=== PATIENT | female | born 1965 | race Caucasian/White ===

== ENCOUNTER 2017-05-02 15:05 | Emergency (ER) | payer MEDICAID ==
[~2017-05-02] VITALS: Ht 160 cm; Wt 54.4 kg
[~2017-05-02 15:05] MED LIST: CARV12.544 PO; ENAL5TAB92 PO; FURO40TA4 PO; LORA-622 PO; POT20T PO
[2017-05-02] MEDS ORDERED: amLODIPine BESYLATE 5 MG TAB PO ONE (15:45)
[2017-05-02] MEDS ORDERED: LORazepam 0.5 MG TAB PO ONE (16:00)
[2017-05-02 16:16] LABS: Basophils # (auto) 0 uL; Basophils % (auto) 0.5 % (0.0-2.0); Eosinophils # (auto) 0.3 uL; Eosinophils % (auto) 2.8 % (0.0-7.0); Hematocrit 45.5 % (36.0-46.0); Hemoglobin 15.1 g/dL (12.2-16.2); Lymphocytes # (auto) 1.4 uL; Lymphocytes % (auto) 15.2 % (10.0-50.0); Mean Corpuscular Hemoglobin 28.4 pg (28.0-32.0); Mean Corpuscular Hgb Conc. 33.2 g/dL (32.0-36.0); Mean Corpuscular Volume 85.5 fL (80.0-100.0); Mean Platelet Volume 7.3 fL (6.9-10.8); Monocytes # (auto) 0.6 uL; Monocytes % (auto) 6.6 % (0.0-12.0); Neutrophils % (auto) 74.9 % (37.0-80.0); Platelet Count (auto) 234 10^3/uL (140-450); Red Cell Distribution Width 13.9 % (11.8-14.3); White Blood Cell 9.3 10^3/uL (4.4-10.8)
[2017-05-02 16:30] LABS: Albumin 3.6 g/dL (3.4-5.0); Alkaline Phosphatase 95 U/L (45-117); Anion Gap 7 (5-15); Aspartate Aminotransferase 16 U/L (15-37); BUN/Creatinine Ratio 17.4; Bilirubin, Total 0.6 mg/dL (0.2-1.0); Blood Urea Nitrogen 15 mg/dL (7-18); Calcium 8.8 mg/dL (8.5-10.1); Carbon Dioxide 26 mmol/L (21-32); Chloride 106 mmol/L (98-107); GFR African American 89 mL/min; GFR Non-African American 74 mL/min; Glucose 95 mg/dL (74-106); Potassium 3.8 mmol/L (3.5-5.1); Sodium 139 mmol/L (136-145); Total Protein 7.4 g/dL (6.4-8.2)
[2017-05-02] MEDS ORDERED: cloNIDine HCL 0.1 MG TAB PO ONE (17:15)
[2017-05-02 18:37] VITALS: BP 153/98
== END 2017-05-02 17:02 | disposition home or self-care (01) ==
LOC: EDBD 15:05 → ER 15:15
DX: I11.0 Hypertensive heart disease with heart failure (principal); I50.9 Heart failure, unspecified; F41.9 Anxiety disorder, unspecified; Z88.0 Allergy status to penicillin; Z88.6 Allergy status to analgesic agent; E78.5 Hyperlipidemia, unspecified; I25.2 Old myocardial infarction
CPT/HCPCS: 36415; 70450; 80053; 84484; 85025

== ENCOUNTER 2017-07-09 18:35 | Emergency (ER) | payer MEDICAID ==
[~2017-07-09] VITALS: Ht 160 cm; Wt 65.8 kg
[2017-07-09 18:44] VITALS: BP 183/100
== END 2017-07-09 20:08 | disposition left against medical advice (07) ==
LOC: ER 18:35 → EDUNIT# 18:35 → EDBD 18:35 → ER 20:08
DX: M54.9 Dorsalgia, unspecified (principal); Z53.21 Procedure and treatment not carried out due to patient leaving prior to being seen by health care provider

== ENCOUNTER 2019-08-02 21:49 | Inpatient (IN) | payer SELFPAY ==
[~2019-08-02] VITALS: Ht 160 cm; Wt 63.4 kg
[~2019-08-02 21:49] MED LIST changes: +ENAL5TAB PO; -ENAL5TAB92 PO
[2019-08-02] MEDS ORDERED: cloNIDine HCL 0.1 MG TAB PO ONE (22:15)
[2019-08-02 22:28] LABS: Basophils # (auto) 0.1 uL; Basophils % (auto) 0.9 % (0.0-2.0); Eosinophils # (auto) 0.1 uL; Hematocrit 38.9 % (36.0-46.0); Hemoglobin 13.1 g/dL (12.2-16.2); Lymphocytes # (auto) 2.3 uL; Lymphocytes % (auto) 30.3 % (10.0-50.0); Mean Corpuscular Hemoglobin 28.3 pg (28.0-32.0); Mean Corpuscular Hgb Conc. 33.7 g/dL (32.0-36.0); Mean Corpuscular Volume 83.8 fL (80.0-100.0); Monocytes # (auto) 0.6 uL; Monocytes % (auto) 7.7 % (0.0-12.0); Neutrophils # (auto) 4.5 uL; Neutrophils % (auto) 59.1 % (37.0-80.0); Platelet Count (auto) 246 10^3/uL (140-450); Red Blood Cells 4.64 10^6/uL (4.0-5.20); Red Cell Distribution Width 14.4 % (11.8-14.3); White Blood Cell 7.6 10^3/uL (4.4-10.8)
[2019-08-02 22:45] LABS: Albumin 3.6 g/dL (3.4-5.0); Calcium 9.2 mg/dL (8.5-10.1)
[2019-08-02 22:51] LABS: BUN/Creatinine Ratio 20.5; Bilirubin, Total 0.5 mg/dL (0.2-1.0); Total Protein 7.3 g/dL (6.4-8.2)
[2019-08-02 22:55] LABS: INR 1.08 (0.9-1.15); Partial Thromboplastin Time 25.9 sec (23.64-32.05)
[2019-08-02] MEDS ORDERED: ASPirin 81 mg TAB PO ONE (23:30)
[2019-08-02] MEDS ORDERED: ONDANSETRON HCL 4 MG/2 ML VIAL IV ONE (23:30)
[2019-08-02] MEDS ORDERED: ATORVASTATIN 20 MG TAB PO ONE (23:30)
[2019-08-02] MEDS ORDERED: NITROGLYCERIN 2% OINT 1GM PKG TD ONE (23:30)
[2019-08-02] MEDS ORDERED: MORPHINE SULFATE 4 MG/ML SYR/VIAL IV ONE (23:30)
[2019-08-02] MEDS ORDERED: HEPARIN DRIP/D5W 100UNITS/ML 250 ML IV SCH (23:31)
[2019-08-02 23:52] LABS: Basophils # (auto) 0.2 uL; Basophils % (auto) 2.2 % (0.0-2.0); Eosinophils # (auto) 0.2 uL; Eosinophils % (auto) 2.1 % (0.0-7.0); Hematocrit 38.3 % (36.0-46.0); Hemoglobin 12.8 g/dL (12.2-16.2); Lymphocytes # (auto) 2.4 uL; Lymphocytes % (auto) 31.1 % (10.0-50.0); Mean Corpuscular Hemoglobin 27.8 pg (28.0-32.0); Mean Corpuscular Hgb Conc. 33.4 g/dL (32.0-36.0); Mean Corpuscular Volume 83.2 fL (80.0-100.0); Monocytes # (auto) 0.6 uL; Neutrophils # (auto) 4.4 uL; Neutrophils % (auto) 56.6 % (37.0-80.0); Platelet Count (auto) 239 10^3/uL (140-450); Red Cell Distribution Width 14.4 % (11.8-14.3); White Blood Cell 7.8 10^3/uL (4.4-10.8)
[2019-08-03] MEDS ORDERED: ACETAMINOPHEN 325 MG TAB PO ONE
[2019-08-03 00:14] LABS: Albumin 3.7 g/dL (3.4-5.0); BUN/Creatinine Ratio 22.7; Calcium 9.2 mg/dL (8.5-10.1); Potassium 4.5 mmol/L (3.5-5.1)
[2019-08-03 00:20] LABS: Bilirubin, Total 0.4 mg/dL (0.2-1.0)
[2019-08-03] MEDS ORDERED: FUROSEMIDE 20 MG/2 ML VIAL IV ONE ×2 (00:30)
[2019-08-03] MEDS ORDERED: HEPARIN SODIUM (PORCINE) 5000 UNITS/ML 1ML VIAL ONE (00:41)
[2019-08-03] MEDS ORDERED: ONDANSETRON HCL 4 MG/2 ML VIAL IV PRN (00:45)
[2019-08-03] MEDS ORDERED: TEMAZEPAM 15 MG CAP PO PRN (00:45)
[2019-08-03] MEDS ORDERED: METOPROLOL TARTRATE 25 MG TAB PO ONE (00:45)
[2019-08-03] MEDS ORDERED: MORPHINE SULF INJ 2 MG/ML SYRINGE 1ML IV PRN (01:00)
[2019-08-03] MEDS ORDERED: HEPARIN SODIUM (PORCINE) 5000 UNITS/ML 1ML VIAL IV ONE ×2 (01:00→20:50)
[2019-08-03] MEDS ORDERED: NITROGLYCERIN 0.4 MG SL TAB SL PRN (01:00)
[2019-08-03] MEDS: HEPARIN DRIP/D5W 100UNITS/ML 250 ML IV SCH (01:06)
[2019-08-03] MEDS ORDERED: IOHEXOL 350 MG/ML 100ML IJ ONE (01:15)
[2019-08-03 02:15] LABS: Basophils # (auto) 0.1 uL; Basophils % (auto) 1.4 % (0.0-2.0); Eosinophils # (auto) 0.2 uL; Eosinophils % (auto) 2.6 % (0.0-7.0); Hematocrit 36.7 % (36.0-46.0); Lymphocytes # (auto) 2.6 uL; Lymphocytes % (auto) 37.4 % (10.0-50.0); Mean Corpuscular Hemoglobin 27.3 pg (28.0-32.0); Mean Corpuscular Hgb Conc. 32.8 g/dL (32.0-36.0); Mean Corpuscular Volume 83.2 fL (80.0-100.0); Monocytes # (auto) 0.5 uL; Monocytes % (auto) 6.8 % (0.0-12.0); Neutrophils # (auto) 3.6 uL; Neutrophils % (auto) 51.8 % (37.0-80.0); Nucleated Red Blood Cells % 0.1 %; Platelet Count (auto) 223 10^3/uL (140-450); Red Blood Cells 4.41 10^6/uL (4.0-5.20); Red Cell Distribution Width 14.3 % (11.8-14.3); White Blood Cell 6.9 10^3/uL (4.4-10.8)
[2019-08-03 02:47] LABS: INR 1.18 (0.9-1.15)
[2019-08-03 02:50] LABS: Partial Thromboplastin Time 107.8 sec (23.64-32.05)
[2019-08-03 05:17] LABS: Urine Bacteria FEW /hpf (None Seen); Urine Blood 1+ /uL (Negative); Urine Hyaline Cast FEW /lpf (0 - 2); Urine Mucus FEW (None Seen); Urine Specific Gravity 1.029 (1.001-1.035); Urine WBC 2 /hpf (0 - 5)
[2019-08-03] MEDS: FUROSEMIDE 20 MG/2 ML VIAL IV SCH ×2 (06:00→18:00)
[2019-08-03 08:11] LABS: INR 1.09 (0.9-1.15); Partial Thromboplastin Time 28.5 sec (23.64-32.05)
[2019-08-03] MEDS: ACETAMINOPHEN 325 MG TAB PO PRN ×2 (08:37→18:30)
[2019-08-03] MEDS: PANTOPRAZOLE 40 MG TAB PO SCH (09:57)
[2019-08-03] MEDS: ENALAPRIL MALEATE 2.5 MG TAB PO SCH (09:57)
[2019-08-03] MEDS ORDERED: ASPirin 81 mg TAB PO SCH (10:00)
[2019-08-03] MEDS: CARVEDILOL 12.5 MG TAB PO SCH ×2 (10:00→22:00)
[2019-08-03] MEDS ORDERED: CLOPIDOGREL 300 MG TAB PO ONE (12:00)
[2019-08-03] MEDS ORDERED: CLOPIDOGREL BISULFATE 75 MG TAB PO ONE (12:00)
[2019-08-03 14:27] LABS: INR 1.13 (0.9-1.15); Partial Thromboplastin Time 57.4 sec (23.64-32.05)
--- NOTE | 2019-08-03 17:15 | NUR ---
Telemetry admit from ER VIN HILLMAN admitted to Telemetry unit after SBAR received. Patient oriented to SHAI WORRELL,RN primary RN, unit, room, bed, and unit policies regarding patient care and visiting hours. Patient now on continuous telemetry monitoring, tele box # 30 and telemetry reading on arrival to unit is NSR @60bpm. Patient placed on bedside oxygen @ 2l n/c. weighed by bedscale and encouraged to call if they need something. Bed in lowest/locked position, bed rails up x2, call light within reach. All questions and concerns addressed, patient verbalized understanding.
[2019-08-03 17:53] VITALS: BP 99/62
[2019-08-03 17:56] VITALS: BP 99/62
--- NOTE | 2019-08-03 19:30 | NUR ---
Opening Shift Note Assumed care of patient, awake and alert x4. No S/S of distress/SOB or pain. Heparin drip is infusing at 6.8 mls/hr to the RAC. Call light is within reach, side rails up x2, bed is in lowest position. Instructed on POC and to call for assist PRN, will continue to monitor for changes Q1hr and PRN.
[2019-08-03 20:22] LABS: INR 1.11 (0.9-1.15); Partial Thromboplastin Time 33.6 sec (23.64-32.05)
--- NOTE | 2019-08-03 20:44 | NUR ---
Pharmacy called. New aPTT lab draw was 33.6, protocol to give 5000 unit bolus of heparin and increase drip rate by 3ml/hr. New drip rate is to be 9.8 ml/hr
--- NOTE | 2019-08-03 20:55 | NUR ---
5,000 unit Heparin bolus given. Heparin drip rate changed from 6.8cc/hr to 9.8cc/hr. Next aPTT lab draw is at 0300. Will continue to monitor.
[2019-08-03] MEDS: ATORVASTATIN 20 MG TAB PO SCH (22:02)
[2019-08-03 22:05] VITALS: BP 91/56
--- NOTE | 2019-08-03 23:20 | NUR ---
Dr. Lazar rounding on patient. New orders received and verified for aspirin 81 mg daily, furosemide 40 mg IVP BID, furosemide 40 mg IVP one time now, cardiac/ 2gm Na diet, left heart cath with Dr. Krause on 08/06, strict intake and output, and daily weights. Will carry out and continue to monitor.
[2019-08-04] MEDS: FUROSEMIDE 20 MG/2 ML VIAL IV SCH ×3 (00:07→18:20)
[2019-08-04 02:54] LABS: Basophils # (auto) 0 uL; Basophils % (auto) 0.3 % (0.0-2.0); Eosinophils # (auto) 0.3 uL; Eosinophils % (auto) 3.6 % (0.0-7.0); Hematocrit 40.6 % (36.0-46.0); Hemoglobin 13.5 g/dL (12.2-16.2); Lymphocytes % (auto) 23.7 % (10.0-50.0); Mean Corpuscular Hemoglobin 27.3 pg (28.0-32.0); Mean Corpuscular Hgb Conc. 33.2 g/dL (32.0-36.0); Mean Corpuscular Volume 82.2 fL (80.0-100.0); Monocytes # (auto) 0.7 uL; Monocytes % (auto) 8.6 % (0.0-12.0); Neutrophils # (auto) 5.5 uL; Neutrophils % (auto) 63.8 % (37.0-80.0); Nucleated Red Blood Cells % 0.1 %; Platelet Count (auto) 236 10^3/uL (140-450); Red Blood Cells 4.94 10^6/uL (4.0-5.20); Red Cell Distribution Width 14.1 % (11.8-14.3); White Blood Cell 8.6 10^3/uL (4.4-10.8)
[2019-08-04 03:18] LABS: Albumin 3.5 g/dL (3.4-5.0); Calcium 9.2 mg/dL (8.5-10.1); Potassium 3.7 mmol/L (3.5-5.1)
[2019-08-04 03:21] LABS: INR 1.09 (0.9-1.15)
[2019-08-04 03:22] LABS: BUN/Creatinine Ratio 24.8; Bilirubin, Total 0.8 mg/dL (0.2-1.0); Total Protein 7.1 g/dL (6.4-8.2)
[2019-08-04 03:24] LABS: Partial Thromboplastin Time 79.4 sec (23.64-32.05)
--- NOTE | 2019-08-04 03:29 | NUR ---
Critical lab value received aPTT aPTT level is now 79.4. Protocol to adjust heparin drip is no bolus and to decrease by 2ml/hr. Heparin drip is now set at 7.8ml/hr. Next lab draw is for 0900. Will continue to monitor.
[2019-08-04 05:14] VITALS: BP 110/55
[2019-08-04] MEDS: ACETAMINOPHEN 325 MG TAB PO PRN (05:23)
[2019-08-04 08:26] VITALS: BP 101/63
[2019-08-04] MEDS: ASPirin 81 mg TAB PO SCH (09:27)
[2019-08-04] MEDS: CLOPIDOGREL BISULFATE 75 MG TAB PO SCH (09:27)
[2019-08-04] MEDS: PANTOPRAZOLE 40 MG TAB PO SCH (09:27)
[2019-08-04] MEDS: CARVEDILOL 12.5 MG TAB PO SCH ×2 (09:28→22:25)
[2019-08-04] MEDS: ENALAPRIL MALEATE 2.5 MG TAB PO SCH (09:28)
[2019-08-04 09:41] LABS: INR 1.13 (0.9-1.15)
[2019-08-04] MEDS: HEPARIN DRIP/D5W 100UNITS/ML 250 ML IV SCH (09:55)
--- NOTE | 2019-08-04 09:58 | NUR ---
PTT 49.0 HEPARIN ADJUSTED PER PROTOCOL Addendum: 08/04/19 at 1045 by RUBIN HERNANDEZ RN RN PTT 46.0
[2019-08-04] MEDS ORDERED: ASPirin 81 mg TAB PO SCH (10:00)
[2019-08-04] MEDS ORDERED: POTASSIUM CHL 20 Meq TABLET PO ONE (10:15)
--- NOTE | 2019-08-04 10:37 | NUR ---
DRUG SCREEN URINE SAMPLE OBTAINED AND SENT TO LAB
[2019-08-04 11:00] LABS: Alcohol, Urine < 3.0 mg/dL (0-5); Amphetamine Screen, Urine POSITIVE (NEGATIVE); Barbiturate Scree,Urine NEGATIVE (NEGATIVE); Benzodiazephine Screen, Urine NEGATIVE (NEGATIVE); Cannabinoid Screen, Urine NEGATIVE (NEGATIVE); Cocaine Screen, Urine NEGATIVE (NEGATIVE); Opiate Scree,Urine NEGATIVE (NEGATIVE); Phencyclidine Screen, Urine NEGATIVE (NEGATIVE)
[2019-08-04 13:00] VITALS: BP 95/63
[2019-08-04 15:06] LABS: INR 1.11 (0.9-1.15)
--- NOTE | 2019-08-04 15:28 | NUR ---
PTT CAME BACK 49.0 ADJUSTED HEPARIN PER PROTOCOL
--- NOTE | 2019-08-04 16:09 | NUR ---
SPOKE TO PHARMACY PER PHARMACY TO MAINTAIN RATE 9.8ML/HR
[2019-08-04 16:28] VITALS: BP 102/64
--- NOTE | 2019-08-04 19:20 | NUR ---
Opening Shift Note Assumed care of patient, awake and alert x4. No S/S of distress/SOB or pain. Heparin drip is infusing at 9.8 mls/hr to the RAC. Call light is within reach, side rails up x2, bed is in lowest position. Instructed on POC and to call for assist PRN, will continue to monitor for changes Q1hr and PRN.
--- NOTE | 2019-08-04 21:30 | NUR ---
aPTT lab value is 37.2, adjusted heparin drip per protocol, new drip rate is 11.8 ml/s hr.
[2019-08-04 21:54] LABS: INR 1.11 (0.9-1.15); Partial Thromboplastin Time 37.2 sec (23.64-32.05)
[2019-08-04 22:00] VITALS: BP_SYST 109; BP_SYST 116; BP_DIAS 57; BP_DIAS 63
[2019-08-04] MEDS: ATORVASTATIN 20 MG TAB PO SCH (22:25)
[2019-08-05 03:30] LABS: BUN/Creatinine Ratio 29.2; Calcium 9.3 mg/dL (8.5-10.1)
[2019-08-05 04:31] LABS: INR 1.11 (0.9-1.15); Partial Thromboplastin Time 55.9 sec (23.64-32.05)
--- NOTE | 2019-08-05 04:35 | NUR ---
aPTT level is 55.9, heparin protocol is no change. Current drip rate is maintained at 11.8 ml/hr.
[2019-08-05 05:44] VITALS: BP 110/73
[2019-08-05] MEDS: FUROSEMIDE 20 MG/2 ML VIAL IV SCH ×2 (06:20→18:00)
[2019-08-05 08:00] VITALS: BP 110/73
[2019-08-05 09:06] VITALS: BP 116/69
--- NOTE | 2019-08-05 09:45 | NUR ---
Received report, assumed care of patient. Patient is alert and oriented. IV right AC, Heparin infusing. Patient has no complaints at this time. Call light in reach. Will continue to monitor.
[2019-08-05] MEDS: CLOPIDOGREL BISULFATE 75 MG TAB PO SCH (09:52)
[2019-08-05] MEDS: ASPirin 81 mg TAB PO SCH (09:53)
[2019-08-05] MEDS: ENALAPRIL MALEATE 2.5 MG TAB PO SCH (09:53)
[2019-08-05] MEDS: PANTOPRAZOLE 40 MG TAB PO SCH (09:53)
[2019-08-05] MEDS: CARVEDILOL 12.5 MG TAB PO SCH ×2 (09:53→22:00)
[2019-08-05 10:16] LABS: INR 1.09 (0.9-1.15); Partial Thromboplastin Time 65.3 sec (23.64-32.05)
[2019-08-05] MEDS: HEPARIN DRIP/D5W 100UNITS/ML 250 ML IV SCH (10:37)
[2019-08-05 12:21] VITALS: BP 99/59
--- NOTE | 2019-08-05 13:50 | NUR ---
IV right AC out. Pressure dressing to site. Will continue to monitor.
--- NOTE | 2019-08-05 14:19 | NUR ---
IV insertion IV access obtained, via clean sterile technique by inserting 22 gauge catheter at right forearm after 2 attempts. IV secured properly. No trauma to site. Patient tolerated procedure well. IV started by KAYA Min.
--- NOTE | 2019-08-05 15:30 | NUR ---
PTT 51.6. No change in rate of Heparin.
[2019-08-05 15:42] LABS: INR 1.05 (0.9-1.15); Partial Thromboplastin Time 51.6 sec (23.64-32.05)
[2019-08-05 16:50] VITALS: BP 93/41
--- NOTE | 2019-08-05 19:40 | NUR ---
Opening Shift Note Assumed care of patient, awake and alert x4. No S/S of distress/SOB or pain. Call light is within reach, side rails up x2, bed is in lowest position. Oxygen is at 2L/min vi nasal cannula. Heparin drip is at 12mls/hr. IV is patent. Tracey is in place and hung below bladder. Instructed on POC and to call for assist PRN, will continue to monitor for changes Q1hr and PRN.
[2019-08-05] MEDS: ATORVASTATIN 20 MG TAB PO SCH (22:07)
[2019-08-05 22:39] VITALS: BP 98/59
--- NOTE | 2019-08-06 00:01 | NUR ---
Paged hospitalist Patient is complaining of itching everywhere.
--- NOTE | 2019-08-06 00:06 | NUR ---
Hospitalist called back, new order received for Benadryl 50 mg PO one time. Will carry out.
[2019-08-06] MEDS ORDERED: diphenhdrAMINE HCL 25 MG CAP PO ONE ×2 (00:15→23:00)
--- NOTE | 2019-08-06 00:26 | NUR ---
Refusing environmental monitoring specialist technical publications manager called, patient is off tele. This RN went to put her back on and the patient stated, "No you are not touching me. I am not putting those stickers back on. They make me itch. If you guys had listened to me 3 days ago, I wouldn't be pissed off now, but now I'm angry. No, just leave me alone and let me sleep." Will retry to apply the environmental monitoring specialist at a later time, will continue to monitor and round hourly/prn.
--- NOTE | 2019-08-06 00:35 | NUR ---
Dr. Lazar is at the bedside. Explained to him the patient's urine has become more red since the heparin drip was initiated. Emerson is in place for strict intake and output. Verbal orders to stop the heparin drip and to place a urology consult for gross hematuria and leave the emerson in place for now. Will carry out and continue to monitor.
[2019-08-06] MEDS: ACETAMINOPHEN 325 MG TAB PO PRN (04:51)
[2019-08-06 05:30] VITALS: BP 128/65
[2019-08-06] MEDS: FUROSEMIDE 20 MG/2 ML VIAL IV SCH ×2 (06:24→18:20)
[2019-08-06 06:44] LABS: Basophils # (auto) 0.1 uL; Basophils % (auto) 0.8 % (0.0-2.0); Eosinophils # (auto) 0.3 uL; Eosinophils % (auto) 3.6 % (0.0-7.0); Hematocrit 41.2 % (36.0-46.0); Lymphocytes # (auto) 1.8 uL; Mean Corpuscular Hemoglobin 28.1 pg (28.0-32.0); Mean Corpuscular Hgb Conc. 34.1 g/dL (32.0-36.0); Mean Corpuscular Volume 82.3 fL (80.0-100.0); Monocytes # (auto) 0.7 uL; Monocytes % (auto) 10.1 % (0.0-12.0); Neutrophils # (auto) 4.4 uL; Neutrophils % (auto) 60.5 % (37.0-80.0); Platelet Count (auto) 222 10^3/uL (140-450); Red Cell Distribution Width 13.9 % (11.8-14.3); White Blood Cell 7.2 10^3/uL (4.4-10.8)
[2019-08-06 06:59] LABS: INR 1.06 (0.9-1.15); Partial Thromboplastin Time 25.7 sec (23.64-32.05)
--- NOTE | 2019-08-06 07:30 | NUR ---
OPENING SHIFT NOTE: Received report from NOC RNAde. Assumed care of patient. Patient resting in bed, denies pain. Bed in lowest position, rails x2 up and call light within reach. Updated on plan of care. Will continue to monitor.
--- NOTE | 2019-08-06 08:45 | NUR ---
CATHLAB: Patient taken to cathlab via bed. SBAR given to KAYA Murray.
[2019-08-06 09:00] VITALS: BP 119/81
[2019-08-06] MEDS: HEPARIN IN NS 1000Units/500mL 0 ML ONE (09:45)
[2019-08-06] MEDS: IOHEXOL 350 MG/ML 100ML IJ ONE (09:45)
[2019-08-06] MEDS: LIDOCAINE 2%HCL (LOCAL ANESTH.) INJ 20ML MDV ONE (09:45)
[2019-08-06] MEDS: ENALAPRIL MALEATE 2.5 MG TAB PO SCH (10:00)
[2019-08-06] MEDS: CARVEDILOL 12.5 MG TAB PO SCH ×2 (10:00→22:04)
[2019-08-06] MEDS: ASPirin 81 mg TAB PO SCH (10:00)
[2019-08-06] MEDS: CLOPIDOGREL BISULFATE 75 MG TAB PO SCH (10:00)
[2019-08-06] MEDS: PANTOPRAZOLE 40 MG TAB PO SCH (10:00)
--- NOTE | 2019-08-06 13:49 | NUR ---
NUTRITION ASSESSMENT NOTES Please refer to link notes of nutrition screen form filed under the intervention section of the plan of care for further details. Est. Needs: 1250 kcal to 1500 kcal (25-30 kcal/kgBW), 40 gms to 60 gms pro (1.0-1.2 gms/kgBW). Will continue to monitor pertinent labs and reassess nutrient need prn Thank you. Addendum: 08/06/19 at [address] Amended: Links added.
[2019-08-06] MEDS ORDERED: IOHEXOL 350 MG/ML 100ML IJ ONE (14:23)
[2019-08-06] MEDS ORDERED: LIDOCAINE 2%HCL (LOCAL ANESTH.) INJ 20ML MDV ONE (14:23)
[2019-08-06] MEDS ORDERED: VERAPAMIL 2.5MG/ML INJ 2ML VIAL IV ONE (14:31)
[2019-08-06] MEDS ORDERED: ANGIOMAX 250 MG VIAL IV ONE (14:31)
[2019-08-06] MEDS ORDERED: MIDAZOLAM HCL 1MG/1ML-2 ML VIAL ONE (14:32)
[2019-08-06] MEDS ORDERED: fentaNYL CITRATE 100 MCG/2 ML VL ONE (14:32)
[2019-08-06] MEDS ORDERED: SODIUM CHL 0.9% 0 ML ONE (14:33)
[2019-08-06] MEDS ORDERED: HEPARIN SODIUM (PORCINE) 5000 UNITS/ML 1ML VIAL ONE (14:40)
--- NOTE | 2019-08-06 16:00 | NUR ---
PATIENT RETURNED FROM CATHLAB. RIGHT RADIAL ASSESSED WITH KAYA RAUSCH.
[2019-08-06 17:00] VITALS: BP 120/60
[2019-08-06] MEDS ORDERED: diphenhdrAMINE HCL 50 MG/1 ML VL IV PRN (17:15)
--- NOTE | 2019-08-06 20:00 | NUR ---
Vascular band removed, no signs of bleeding. Gauze and tegaderm placed. Will continue to pain.
--- NOTE | 2019-08-06 20:30 | NUR ---
Tracey bag still contains pink to red clear urine output. Will continue to monitor.
[2019-08-06] MEDS ORDERED: ENOXAPARIN SOD 80 MG/0.8ML SYRINGE SC SCH (22:00)
--- NOTE | 2019-08-06 22:00 | NUR ---
Patient states that she still has itchiness on abdomen and back. Received one time does of Benedryl PO, but order for PRN is IV. Patient does not want IV. Paged hospitalist for new order. Will continue to monitor.
[2019-08-06] MEDS: ATORVASTATIN 20 MG TAB PO SCH (22:04)
--- NOTE | 2019-08-06 22:45 | NUR ---
Received new orders for one time dose of Benedryl PO 50 mg. Will administer and monitor accordingly.
--- NOTE | 2019-08-07 | NUR ---
Patient complained about discomfort of emerson. Suggested and offered to readjust emerson. Educated patient regarding need for emerson for accurate I&O and now hematuria. Patient understood, but refused adjustment of emerson catheter.
[2019-08-07 05:30] VITALS: BP 122/69
[2019-08-07] MEDS: FUROSEMIDE 20 MG/2 ML VIAL IV SCH (06:22)
[2019-08-07] MEDS: ACETAMINOPHEN 325 MG TAB PO PRN (06:23)
[2019-08-07 09:00] VITALS: BP 120/69
--- NOTE | 2019-08-07 09:15 | NUR ---
Patient complaining of itching Patient requesting Benadryl, no orders in the eMAR. Explained to patient that there is no current orders, patient stated "there were orders why isn't it in there, I told the night nurse I need it for itching." Paged Dr. Lane, awaiting response.
--- NOTE | 2019-08-07 09:20 | NUR ---
DR DELA CRUZ RETURNED PAGE, new orders received for IV Benadryl.
[2019-08-07] MEDS: PANTOPRAZOLE 40 MG TAB PO SCH (09:39)
[2019-08-07] MEDS: ASPirin 81 mg TAB PO SCH (09:39)
[2019-08-07] MEDS: CARVEDILOL 12.5 MG TAB PO SCH ×2 (09:39→21:07)
--- NOTE | 2019-08-07 09:43 | NUR ---
IV insertion IV access obtained, via clean sterile technique by inserting 22 gauge catheter at right hand after 1 attempt. IV secured properly. No trauma to site. Patient tolerated well. IV removal IV to the right forearm discontinued with clean sterile technique, catheter fully intact. Pressure dressing applied to site. Patient tolerated well.
[2019-08-07] MEDS: ENALAPRIL MALEATE 2.5 MG TAB PO SCH (09:44)
--- NOTE | 2019-08-07 09:57 | NUR ---
HOSPITALIST AT BEDSIDE Dr. Lane at bedside, new order received to discontinue Tracey catheter.
[2019-08-07] MEDS ORDERED: CLOPIDOGREL BISULFATE 75 MG TAB PO SCH (10:00)
[2019-08-07] MEDS ORDERED: ENAL2.5T PO (10:21)
[2019-08-07] MEDS ORDERED: CAR125T PO (10:21)
[2019-08-07] MEDS ORDERED: FURO40TA4 PO (10:21)
[2019-08-07] MEDS: diphenhdrAMINE HCL 50 MG/1 ML VL IV PRN ×3 (10:59→21:06)
[2019-08-07 11:26] LABS: BUN/Creatinine Ratio 32.8; Calcium 9.4 mg/dL (8.5-10.1); Potassium 3.9 mmol/L (3.5-5.1)
--- NOTE | 2019-08-07 11:50 | NUR ---
Tracey catheter dc'd Order to discontinue Tracey catheter. Tracey removed with clean technique following deflation of balloon. Patient tolerated well with no complaints of pain.
[2019-08-07 13:23] VITALS: BP 100/67
--- NOTE | 2019-08-07 14:42 | NUR ---
assessment Patient is a 54 year old female who is alert and oriented. Patients cognitive abilities are intact. Prior to admission patient lived home alone and functioned independently. Patient informed me she is able to care for her own ADLs. Per patient she will return home to her prior living arrangements post discharge and will have transport home. Patient informed me she has no need for DME. Patient informed me she has [employer]. Patient informed me she feels safe returning home on discharge. Patient is positive for amphetamines. 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 I informed patient about her order for [employer] life vest. I informed patient that she would have to stay clean in order to qualify for life vest. Patient informed me she was not going to use meth anymore. I have offered patient resources for inpatient and outpatient rehab facilities. Patient informed me that she has resources and does not need more. Patient has been informed of the criteria for life vest and agrees to compliance. I informed patient she has a right to speak to a social studies department chair regarding all care. I informed patient she has a right to participate in any and all discharge planning. Patient does not have a POA and advanced directive. I have offered patient information on POA and advanced directives. I informed the patient the advantages and benefits of having an Advanced Directive. Patient verbalized understanding and agreed to discharge plan. Addendum: 08/07/19 at 1448 by Rosmery LEAVITT Amended: Links added.
[2019-08-07 16:52] VITALS: BP 120/68
--- NOTE | 2019-08-07 18:41 | NUR ---
[employer] LIFE VEST DELIVERED
--- NOTE | 2019-08-07 19:03 | NUR ---
CLOSING SHIFT NOTES Care endorsed to shift production supervisor RN, no signs of distress noted.
--- NOTE | 2019-08-07 19:41 | NUR ---
Opening Shift Note Assumed care of patient, awake and alert. No S/S of distress/SOB or pain. life vest is on patient. Instructed on POC and to call for assist PRN, will continue to monitor for changes Q1hr and PRN. bed in low position and call light within reach.
[2019-08-07] MEDS: ATORVASTATIN 20 MG TAB PO SCH (21:07)
--- NOTE | 2019-08-07 21:57 | NUR ---
Hospitalist patient requesting cough medication. Patient began yelling " I need cough medication i have been coughing all day". This RN has not seen the patient cough throughout the shift. no prn cough medications scheduled. patient has allergies to codeine and penicillin. will notify hospitalist international sales representative.
[2019-08-07 21:58] VITALS: BP 122/64
[2019-08-07] MEDS ORDERED: guaiFENesin-DM 100/10mg/5ml SYR PO PRN (22:15)
--- NOTE | 2019-08-07 22:38 | NUR ---
cough medication administered patient denies allergies to Robitussin stating she has taken the medication before. patient educated on benefits and side effects of medication.
[2019-08-08] MEDS: diphenhdrAMINE HCL 50 MG/1 ML VL IV PRN (04:47)
[2019-08-08 05:13] VITALS: BP 128/65
--- NOTE | 2019-08-08 06:22 | NUR ---
patient requesting Benadryl educated patient that medication is still not due. patient continues to have rash/redness on her back with scratches. provided patient with cold towels to apply to her back. patient refused lotion
--- NOTE | 2019-08-08 07:15 | NUR ---
Opening Shift Note Assumed care of patient, awake and alert. No S/S of distress/SOB or pain. Instructed on POC and to call for assist PRN, will continue to monitor for changes Q1hr and PRN. Fall precautions in place per safety protocol.
[2019-08-08 08:00] VITALS: BP 110/77
[2019-08-08 09:00] VITALS: BP 110/77
[2019-08-08] MEDS ORDERED: ATOR20TA50 PO (09:21)
[2019-08-08] MEDS ORDERED: ASPI81CH43 PO (09:21)
[2019-08-08] MEDS: CARVEDILOL 12.5 MG TAB PO SCH (09:55)
[2019-08-08] MEDS: ASPirin 81 mg TAB PO SCH (09:55)
[2019-08-08] MEDS: PANTOPRAZOLE 40 MG TAB PO SCH (09:56)
[2019-08-08] MEDS ORDERED: FUROSEMIDE 40 MG TAB PO SCH (10:00)
[2019-08-08 12:15] VITALS: BP_SYST 110; BP_SYST 119; BP_DIAS 74; BP_DIAS 77
== END 2019-08-08 12:18 | disposition home or self-care (01) | DRG 280 ==
LOC: ER 21:51 → TELE 21:52 → TELE-CENTR 08-03 17:23
PROVIDERS: ADMIT Nurse Practitioner; ATTEND Internal Medicine
PROC: 4A023N7 Measurement of Cardiac Sampling and Pressure, Left Heart, Percutaneous Approach (ICD-10-PCS; principal; 2019-08-06)
PROC: B2111ZZ Fluoroscopy of Multiple Coronary Arteries using Low Osmolar Contrast (ICD-10-PCS; 2019-08-06)
PROC: B2151ZZ Fluoroscopy of Left Heart using Low Osmolar Contrast (ICD-10-PCS; 2019-08-06)
DX: I21.A1 Myocardial infarction type 2 (principal); I50.43 Acute on chronic combined systolic (congestive) and diastolic (congestive) heart failure; N17.0 Acute kidney failure with tubular necrosis; I13.0 Hypertensive heart and chronic kidney disease with heart failure and stage 1 through stage 4 chronic kidney disease, or unspecified chronic kidney disease; I42.8 Other cardiomyopathies; J91.8 Pleural effusion in other conditions classified elsewhere; E78.5 Hyperlipidemia, unspecified; F15.10 Other stimulant abuse, uncomplicated; I25.5 Ischemic cardiomyopathy; R31.0 Gross hematuria; E78.00 Pure hypercholesterolemia, unspecified; N18.9 Chronic kidney disease, unspecified; I25.2 Old myocardial infarction; Z82.49 Family history of ischemic heart disease and other diseases of the circulatory system; Z90.710 Acquired absence of both cervix and uterus; Z83.3 Family history of diabetes mellitus
CPT/HCPCS: 36415; 71045; 71275; 80048; 80053; 80307; 81001; 83880; 84443; 84484; 85025; 85379; 85610; 85730; 86850; 86900; 86901; 93005; 93306; 99152; 99153; G0378; J2250; J2405

== ENCOUNTER → 2020-01-23 | Outpatient (CLI) | payer MEDICAID ==
[~2020-01-23] MED LIST changes: +ASPI81CH43 PO; +ATOR20TA50 PO; +CAR125T PO; -CARV12.544 PO; +ENAL2.5T7 PO; -ENAL5TAB PO; -LORA-622 PO; -POT20T PO
== END | disposition home or self-care (01) ==
LOC: XYW 08:36
PROVIDERS: ATTEND Internal Medicine
DX: I08.3 Combined rheumatic disorders of mitral, aortic and tricuspid valves (principal); I42.0 Dilated cardiomyopathy
CPT/HCPCS: 93306